=== PATIENT | female | born 1955 | race Caucasian/White ===

== ENCOUNTER → 2017-04-05 | Outpatient (CLI) | payer MEDICARE, OTHER ==
[~2017-04-05] MED LIST: ASPI1TAB57 PO; CALC500T37 PO; DICL75TA PO; FISH100020 PO; HYDR-3580 PO; LEVO.025 PO; LEVO125T3 PO; LISI10TA3 PO; MULT-65 PO; PROG200C PO; SACC1CAP3 PO; TIRO137C PO; VITA100021 SL; [UNRECOGNIZED DRUG - MIXTURE] TOP
[2017-04-05 09:14] LABS: AUTOMATED NEUTROPHIL # 4.2 TH/MM3 (1.8-7.7); BASOPHIL # 0.1 TH/MM3 (0-0.2); BASOPHIL % 1.2 % (0.0-2.0); EOSINOPHIL # 0.2 TH/MM3 (0-0.4); EOSINOPHIL % 2.8 % (0.0-4.0); HEMATOCRIT 40.1 % (35.0-46.0); HEMOGLOBIN 13.6 GM/DL (11.6-15.3); LYMPH % 25.7 % (9.0-44.0); LYMPHOCYTE # 1.7 TH/MM3 (1.0-4.8); MEAN CORPUSCULAR HEMOGLOBIN 30.2 PG (27.0-34.0); MEAN PLATELET VOLUME 7.9 FL (7.0-11.0); MONO % 8.1 % (0.0-8.0); MONOCYTE # 0.5 TH/MM3 (0-0.9); NEUT % 62.2 % (16.0-70.0); PLATELET COUNT 270 TH/MM3 (150-450); RED BLOOD COUNT 4.51 MIL/MM3 (4.00-5.30); RED CELL DISTRIBUTION WIDTH 14.1 % (11.6-17.2); WHITE BLOOD COUNT 6.7 TH/MM3 (4.0-11.0)
[2017-04-05 09:18] LABS: PROTHROMBIN TIME - PATIENT 10.2 SEC (9.8-11.6)
[2017-04-05 09:27] LABS: BICARBONATE 31.2 MEQ/L (21.0-32.0); CALCIUM 9.4 MG/DL (8.5-10.1); CREATININE 0.66 MG/DL (0.50-1.00)
[2017-04-05 10:49] LABS: BILIRUBIN, URINE NEG (NEG); BLOOD, URINE NEG (NEG); GLUCOSE,URINE NEG (NEG); KETONE, URINE NEG (NEG); MUCUS URINE FEW /lpf (OCC); NITRITE,URINE NEG (NEG); PH, URINE 6.5 (5.0-8.5); SQUAMOUS EPITHELIAL CELL URINE <1 /hpf (0-5); URINE COLOR YELLOW (YELLW/STRAW); URINE LEUKOCYTE ESTERASE NEG (NEG)
--- NOTE | 2017-04-05 19:40 | EKG ---
Date Performed: 04/05/2017 Time Performed: 08:56:26 PTAGE: 61 years EKG: Sinus rhythm NORMAL ECG Since the prior tracing, there has been no significant change PREVIOUS TRACING : 12/14/2014 11.00 DOCTOR: Jose Cruz Otero Interpretating Date/Time 04/05/2017 19:38:10
== END ==
LOC: CPRE 08:29
PROVIDERS: ATTEND Orthopaedic Surgery Orthopaedic Surgery of the Spine
DX: Z01.810 Encounter for preprocedural cardiovascular examination (principal); Z01.812 Encounter for preprocedural laboratory examination; M16.12 Unilateral primary osteoarthritis, left hip
CPT/HCPCS: 36415; 80048; 81001; 85025; 85610; 85730; 93005

== ENCOUNTER 2017-04-23 06:05 | Inpatient (IN) | payer MEDICARE, OTHER ==
[~2017-04-23] VITALS: Ht 167.6 cm; Wt 85.7 kg
[~2017-04-23 06:05] MED LIST changes: -HYDR-3580 PO; -LEVO.025 PO; -LEVO125T3 PO; -PROG200C PO
[2017-04-23] MEDS ORDERED: LACTATED RINGER'S 1000 ML IV PRN (06:30)
[2017-04-23] MEDS ORDERED: POVIDONE IODINE 5% (ANTISEPSIS KIT) 4 APPLICATIONS EACH NARE PRN (06:30)
[2017-04-23] MEDS ORDERED: VANCOMYCIN 1000 MG/NS 250 ML (for <70 kg) IV SCH ×2 (06:30)
[2017-04-23] MEDS ORDERED: CHLORHEXIDINE GLUCONATE 4% SOLN 120 ML BTL TOPICAL SCH (06:30)
[2017-04-23] MEDS ORDERED: CHLORHEXIDINE GLUCONATE 2 % 1 PACK (2 CLOTHS) TOPICAL PRN (06:30)
[2017-04-23] MEDS ORDERED: SODIUM CHLORID 0.9% 500 ML IV PRN (06:30)
[2017-04-23] MEDS ORDERED: METOPROLOL TARTRATE 25 MG TAB PO PRN (06:30)
[2017-04-23] MEDS ORDERED: ceFAZolin 2 GM PREMIX 50 ML IV SCH (06:30)
[2017-04-23] MEDS ORDERED: GENTAMICIN SULFATE 80 MG/2 ML VIAL ONE (06:58)
[2017-04-23] MEDS ORDERED: TRANEXAMIC ACID INJ 857 MG in SODIUM CHLORIDE 0.9% INJ 100 ML IV SCH (08:30)
[2017-04-23] MEDS ORDERED: EXPAREL PERI-ARTICULAR INJECTION (TOTAL VOL. 60 ML) P-ARTICULR SCH ×2 (08:30)
[2017-04-23] MEDS ORDERED: BUPIVACAINE/EPINEPHRINE 0.25% 50 ML VIAL ONE (09:29)
[2017-04-23] MEDS ORDERED: NALOXONE HCL 0.4 MG/ML AMP IV PUSH PRN (11:00)
[2017-04-23] MEDS ORDERED: Post-op Orders (for Pharmacy) XX ONE (11:00)
[2017-04-23] MEDS ORDERED: ACETAMINOPHEN/HYDROcodone 325 MG/10 MG TAB PO PRN (11:00)
[2017-04-23] MEDS ORDERED: MISCELLANEOUS PHARMACY INFORMATION XX ONE (11:00)
[2017-04-23] MEDS ORDERED: MORPHINE SULFATE 8 MG/ML INJ IM PRN (11:00)
[2017-04-23] MEDS ORDERED: MISCELLANEOUS NURSING INFORMATION XX PRN (11:00)
--- NOTE | 2017-04-23 11:05 | PD.OP ---
cc: Perez Marinelli MD Operative Report Date of Surgery: Apr 23, 2017 Preoperative Diagnosis: Osteoarthritis left hip, severe Postoperative Diagnosis: Same Procedure: Left total hip replacement arthroplasty, direct anterior exposure Anesthesia: Gen. Surgeon: Perez Marinelli Adjuster Electrical Contacts(s): HEMANTH Kamara Operation and Findings: EBL: 450 cc INDICATION: This patient presents with significant hip pain related to osteoarthritis of left hip. Despite extensive conservative care this patient continues to be painful and now presents for surgical treatment. NOTE: Marisela Kamara PA-C was present for the entire surgical procedure as my photographer assistant. In my medical opinion her skill and care was necessary for the proper management of this patient. COMPONENTS: COMPANY: [employer] CUP: [place], 52 mm, 100 series, gription surface LINER: Altrx 32 mm, neutral STEM: [place], size 13, high offset, hydroxyapatite-coated HEAD: Ceramic, 32 mm, +1, 12/14 taper PROCEDURE: This patient was brought to the operating room and anesthetized in the supine position and positioned on the fracture table with both legs held extended. The left hip and leg was scrubbed with alcohol followed by Hibiclens followed by ChloraPrep and draped sterilely. Antibiotics were given within routine time window and a timeout was done. A 4 inch incision was made starting 2 cm distal and 2 cm lateral to the anterior superior iliac spine. The fascia claire was opened longitudinally. The interval between the fascia claire and the rectus was opened down to the capsule of the hip joint. Retractors were positioned allowing good visualization of the capsule. This was opened longitudinally and flaps were created. Stay sutures were utilized. Exposure was excellent. The neck was cut at the proper location using fluoroscopy as a guide. The head was removed. Deep retractors were positioned allowing good visualization of the acetabulum. Acetabulum was deepened down to the floor starting with a proper size reamer and reaming up to 51 mm. A trial was utilized. Fluoroscopy was used to check position and confirmed satisfactory alignment. The rim was reamed with a 52 mm reamer and the final cup was positioned in approximately 20 of anteversion and 40-45 of abduction. Position was satisfactory. A single hole eliminator was positioned followed by the final liner. The lifting hook was utilized. The leg was dropped to the floor, maximally externally rotated and brought across the midline. Retractors were positioned. A box osteotome was utilized followed by progressive broaching to the proper stem size. Trial reduction showed excellent alignment and fit. With 60 of external rotation the leg was dropped to the floor without evidence of anterior subluxation. The wound was irrigated. The final stem was inserted and was found to be very stable. The final reduction using the final head. Stability was as previously noted. Intraoperative x-rays were taken. The wound was irrigated copiously. Hemostasis was controlled. Local anesthesia was utilized. The capsule was repaired with #2 Tycron sutures. The fascia claire was repaired with running 0 PDS on a loop. Subcutaneous tissue was approximated with 2-0 Vicryl and skin with running intradermal 3-0 Vicryl followed by Steri-Strips. A sterile dressing was applied. The patient was awakened and taken to the recovery room in satisfactory condition. FINDINGS: There was severe osteoarthritis of the left hip. The final solution was excellent and very stable. No complication was appreciated Perez Marinelli MD Apr 23, 2017 11:05
[2017-04-23] MEDS ORDERED: ASPI325T33 PO (11:11)
[2017-04-23] MEDS ORDERED: HYDR-3583 PO (11:11)
[2017-04-23] MEDS ORDERED: *MEPERIDINE 25 MG INJ VIAL PERIprocedural Use ONLY ONE (11:39)
[2017-04-23] MEDS ORDERED: DEXAMETHASONE SOD PHOS 4 MG/ML VIAL IV ONE (12:00)
[2017-04-23] MEDS ORDERED: ePHEDrine/NS 25 MG/5 ML SYRINGE IV ONE (12:00)
[2017-04-23] MEDS ORDERED: PHENYLEPH/NS 1000 MCG/10 ML SYR IV ONE (12:00)
[2017-04-23] MEDS ORDERED: PROPOFOL 200 MG/20 ML AMP IV ONE (12:00)
[2017-04-23] MEDS ORDERED: LIDOCAINE HCL 1% PF 5 ML SYRINGE OTHER ONE (12:00)
[2017-04-23] MEDS ORDERED: GLYCOPYRROLATE 1 MG/5 ML SYRINGE IV PUSH ONE (12:00)
[2017-04-23] MEDS ORDERED: NEOSTIGMINE 5 MG/5 ML SYRINGE IV PUSH ONE (12:00)
[2017-04-23] MEDS ORDERED: LACTATED RINGER'S 1000 ML INJ 1,000 ML IV ONE (12:00)
[2017-04-23] MEDS ORDERED: ROCURONIUM INJ 50 MG/5 ML SYRINGE IV PUSH ONE (12:00)
[2017-04-23] MEDS ORDERED: KETOROLAC TROMETHAMINE 30 MG/ML (IVP) VIAL IV PUSH ONE (12:00)
[2017-04-23] MEDS ORDERED: ONDANSETRON HCL 4 MG/2 ML VIAL IV ONE (12:00)
[2017-04-23] MEDS ORDERED: *morphine SULFATE 10 MG/ML PERIprocedure ONLY ONE (12:12)
[2017-04-23] MEDS ORDERED: ASPIRIN 81 MG CHEW TAB CHEW ONE (12:30)
[2017-04-23] MEDS: LACTATED RINGER'S 1000 ML INJ 1,000 ML IV SCH ×2 (12:30→21:47)
[2017-04-23] MEDS ORDERED: DO NOT ADM ANY ANTICOAGULANT DRUGS PRN (15:00)
--- NOTE | 2017-04-23 15:09 | RADRPT ---
EXAM DATE/TIME: 04/23/2017 09:55 [facility] COMPARISON: No previous studies available for comparison. INDICATIONS : Left anterior total hip arthroplasty. OR. MEDICAL HISTORY : None. SURGICAL HISTORY : Fusion, cervical. ENCOUNTER: Initial ACUITY: 1 day PAIN SCORE: Non-responsive. LOCATION: Left hip FINDINGS: 2 images are recorded digitally in the operating room using C-arm during placement of a total hip art hroplasty. Multiple skin yovani are present. CONCLUSION: Intraoperative images. Kobi Greco MD on April 23, 2017 at 15:07 Board Certified Radiologist. This report was verified electronically.
[2017-04-23 16:00] VITALS: BP 129/74; PULSE 95; RESP 17; TEMP 96.1; O2SAT 97
[2017-04-23] MEDS ORDERED: ONDANSETRON HCL 4 MG/2 ML VIAL IV PUSH PRN (20:45)
[2017-04-23] MEDS: ACETAMINOPHEN/HYDROcodone 325 MG/10 MG TAB PO PRN (20:45)
[2017-04-23] MEDS: ASPIRIN EC 81 MG TABEC PO SCH (20:46)
[2017-04-23] MEDS: MAGNESIUM HYDROXIDE SUSP 30 ML CUP PO SCH (20:46)
[2017-04-23 20:50] VITALS: BP 130/84; PULSE 78; RESP 17; TEMP 97.1; O2SAT 98
[2017-04-23] MEDS ORDERED: LISINOPRIL 10 MG TAB PO SCH (21:00)
[2017-04-23] MEDS ORDERED: SENNOSIDES 8.6 MG TAB PO SCH (21:00)
--- NOTE | 2017-04-23 22:25 | HHI.DCPOC ---
Discharge Care Plan Diagnosis: (1) Osteoarthritis of left hip Your Health Problems Are: Difficulty with ADL Incision/Drains Swelling Goals to Promote Your Health * To prevent worsening of your condition and complications * To maintain your health at the optimal level Directions to Meet Your Goals Take your medications as prescribed Follow your dietary instruction Follow activity as directed Keep your appointments as scheduled Take your immunizations and boosters as scheduled If your symptoms worsen call your PCP, if no PCP go to Urgent Care Center or Emergency Room Smoking is Dangerous to Your Health. Avoid second hand smoke Call the 24-hour hour crisis hotline for domestic abuse at Marisela Kamara Apr 23, 2017 22:25
--- NOTE | 2017-04-23 22:26 | HHI.FF ---
Face to Face Verification Diagnosis: (1) Osteoarthritis of left hip Physical Therapy Gait training, Safety evaluation, Transfer training, bed to chair Hip: Total hip, Protocol: Left, Progress to weight bearing Left LE Weight Bearing: WB as tolerated Additional Instructions PT 4 days/wk for 2 weeks. WBAT Left LE. Anterior AILYN precautions. Walker as needed. Nursing RN Days per Week: 2 x Week(s): 1 Dressing Changes: Do not change dressing Additional Instructions Vitals assessment. Dressing assessment - do not change unless saturated or erythema. I have seen patient Adali Morgan on 04/23/17. My clinical findings support the need for the requested home health care services because: Limited ability to care for self High risk of falls I certify that my clinical findings support that this patient is homebound because: Post-op weakness Unsteady gait/balance Marisela Kamara Apr 23, 2017 22:26
--- NOTE | 2017-04-23 22:28 | HHI.DS ---
Discharge Summary Admission Date Apr 23, 2017 at 06:05 Discharge Date: Apr 24, 2017 Admitting Diagnosis see below Diagnosis: (1) Osteoarthritis of left hip Diagnosis: Principal ICD Codes: M16.12 - Unilateral primary osteoarthritis, left hip Procedures Left total hip arthroplasty, direct anterior approach Brief History This is a 61 year old female patient with an 8-9 year history of left hip pain. She sought out treatment as early as 2009. She was diagnosed with moderate osteoarthritis of her left hip. She began receiving intra-articular hip injections in 2010 and has had at least 5 through 2016. She has taken diclofenac and ibuprofen in addition to over the counter medications. Her most recent xrays showed moderate to severe arthritis. She was not able to receive much relief from her last injection. Due to her steady decline in function and long-term treatment history surgical treatment was recommended in the form of left total hip arthroplasty, direct anterior approach. The patient agreed and now presents for the above. Hospital Course Surgical treatment was performed on the day of admission without complication. She recovered well in PACU and was transferred to the orthopaedic floor. Pain was controlled with IV and oral medications. DVT prophylaxis was initiated with ASA 81mg twice daily. She was given medications for postop nausea. She was compliant with physical therapy and all restrictions. After 1 day she was found to be stable and discharged home with home health care. She was educated to continue home therapy, to ice the operative site daily, and to pursue a high fiber diet. She was given prescriptions for [place] 10mg and ASA 81mg. Pt Condition on Discharge: Stable Discharge Disposition: Disch w/ Home Health Serv Discharge Instructions Diet Instructions: As Tolerated, No Restrictions, High Fiber Diet Additional Diet Instructions: High fiber diet for 3-5 days Activities You Can Perform: Weight Bearing as Kan Activities to Avoid: Strenuous Activity Additional Activity Instruc.: Anterior AILYN precautions New Medications: Commode 3-in-1 (Commode 3-in-1) 1 Mis Mis EA .XX DIRECTED, #1 0 Refills Walker with Front Wheels (Walker with Front Wheels) 1 Mis Mis EA .XX DIRECTED, #[address] (Aspirin EC) 325 Mg Tabdr 81 MG PO BID for Prevent Blood Clot, #60 TAB Hydrocodone/Acetaminophen (Hydrocodone-Acetamin 10-325 mg) 10 Mg-325 Mg Tablet 1 TAB PO Q4H PRN for Pain, #50 TAB Continued Medications: Calcium Ascorbate (Calcium Ascorbate) 500 Mg Tab 500 MG PO DAILY for Calcium Supplement, TAB 0 Refills Cyanocobalamin (Vitamin B-12) 1,000 Mcg Subl 1000 MCG SL DAILY for Nutritional Supplement, TAB.SL [address] (Diclofenac Sodium DR) 75 Mg Tabdr 75 MG PO DAILY, #30 TAB 0 Refills Levothyroxine (Tirosint) 137 Mcg Cap 137 MCG PO DAILY for Thyroid, #30 CAP 0 Refills Lisinopril (Lisinopril) 10 Mg Tab 10 MG PO HS, #30 TAB 0 Refills Multiple Vitamin (Multi-Vitamin Daily) 1 Tab Tab 1 TAB PO DAILY for Nutritional Supplement, TAB 0 Refills [place]-3 Fatty Acids (Fish Oil 1000 mg) 300 Mg-1,000 Mg Cap 1 CAP PO DAILY Saccharomyces Boulardii (Probiotic) 250 Mg Cap 250 MG PO DAILY for Nutritional Supplement, CAP 0 Refills Discontinued Medications: Aspirin DR (Aspirin 81) 81 Mg Tabdr 81 MG PO DAILY, TAB 0 Refills Marisela Kamara Apr 23, 2017 22:28
[2017-04-23] MEDS ORDERED: COMMODE 3-IN-11 MIS (22:29)
[2017-04-23] MEDS ORDERED: WALKER WHEELS/F1 MIS (22:29)
[2017-04-24 00:30] VITALS: BP 140/67; PULSE 91; RESP 18; TEMP 97.7; O2SAT 97
[2017-04-24] MEDS: ACETAMINOPHEN/HYDROcodone 325 MG/10 MG TAB PO PRN ×3 (00:30→12:59)
[2017-04-24 04:30] VITALS: BP 137/65; PULSE 93; RESP 17; TEMP 96.8; O2SAT 95
[2017-04-24] MEDS ORDERED: LEVOTHYROXINE SODIUM 25 MCG TAB PO SCH (06:00)
[2017-04-24] MEDS ORDERED: LEVOTHYROXINE SODIUM 112 MCG TAB PO SCH (06:00)
[2017-04-24 06:49] LABS: HEMATOCRIT 32.2 % (35.0-46.0); HEMOGLOBIN 11.2 GM/DL (11.6-15.3)
[2017-04-24 07:58] VITALS: O2SAT 94
[2017-04-24 08:00] VITALS: BP 135/64; PULSE 87; RESP 18; TEMP 98.1; O2SAT 96
[2017-04-24] MEDS: ASPIRIN EC 81 MG TABEC PO SCH (08:19)
[2017-04-24] MEDS: MAGNESIUM HYDROXIDE SUSP 30 ML CUP PO SCH (08:20)
[2017-04-24] MEDS ORDERED: LEVOTHYROXINE 137 MCG PO SCH (09:00)
[2017-04-24] MEDS: LACTATED RINGER'S 1000 ML INJ 1,000 ML IV SCH (11:08)
--- NOTE | 2017-04-24 13:06 | PD.ORT.PN ---
Subjective Subjective Remarks She is doing well. She struggled with nausea last night but that has resolved. She feels as though this had to do with not eating food while taking her pain pill. She denies any new radiating leg pain. She is urinating well. Ready for d/c home today. No CP or SOB. Objective Vitals Vital Signs Date Time Temp Pulse Resp B/P (MAP) Pulse Ox O2 Delivery O2 Flow Rate FiO2 04/24/17 08:00 98.1 87 18 135/64 (87) 96 04/24/17 07:58 94 04/24/17 04:30 96.8 93 17 137/65 (89) 95 04/24/17 00:30 97.7 91 18 140/67 (91) 97 04/23/17 20:50 97.1 78 17 130/84 (99) 98 04/23/17 16:00 96.1 95 17 129/74 (92) 97 04/23/17 15:45 97.8 75 16 140/74 (96) 95 Room Air 04/23/17 15:00 72 16 142/71 (94) 95 Room Air 04/23/17 14:00 73 16 137/68 (91) 94 Room Air I/O 04/23/17 04/23/17 04/23/17 04/24/17 04/24/17 04/24/17 07:00 15:00 23:00 07:00 15:00 23:00 Intake Total 1300 ml 100 ml 820 ml Output Total 450 ml 950 ml Balance 850 ml -850 ml 820 ml Intake Oral 720 ml IV Total 1300 ml 100 ml 100 ml Output Urine Total 950 ml Estimated Blood Loss 450 ml # Voids 3 # Bowel Movements 0 Result Diagram: 04/24/17 0549 Procedures Left total hip arthroplasty, direct anterior approach Objective Remarks Sitting up in chair NAD With her LLE Anterior hip dressing c/d/i, mild swelling, no erythema, +motor at, +sens distal, +nvi Neg homans Assessment & Plan Ortho Post Op Day #: 1 Problem List: (1) Osteoarthritis of left hip ICD Codes: M16.12 - Unilateral primary osteoarthritis, left hip Qualifiers: Qualified Codes: M16.12 - Unilateral primary osteoarthritis, left hip Assessment and Plan pod#1 s/p L AILYN, anterior Doing well. Ortho stable. Ok to d/c home w c today. PO pain control as needed. Ok to take 1 diclofenac daily after 3 days postop. Hold dressing changes unless saturated. PT - WBAT LLE. Anterior ailyn protocol. ASA 81mg bid for dvt prophylaxis. F/U in 2 weeks as scheduled. F2F written. Marisela Kamara Apr 24, 2017 13:06
== END 2017-04-24 14:21 | disposition home health service (06) | DRG 470 ==
LOC: HSDI 06:05 → N06A 16:05
PROVIDERS: ADMIT Orthopaedic Surgery Orthopaedic Surgery of the Spine; ATTEND Orthopaedic Surgery Orthopaedic Surgery of the Spine
PROC: 0SRB04A Replacement of Left Hip Joint with Ceramic on Polyethylene Synthetic Substitute, Uncemented, Open Approach (ICD-10-PCS; principal; 2017-04-23 08:49)
DX: M16.12 Unilateral primary osteoarthritis, left hip (principal); I10 Essential (primary) hypertension; E03.9 Hypothyroidism, unspecified; M50.30 Other cervical disc degeneration, unspecified cervical region; M43.22 Fusion of spine, cervical region; R11.0 Nausea; Z87.891 Personal history of nicotine dependence; Z88.5 Allergy status to narcotic agent
CPT/HCPCS: 73502; 76000; 85014; 85018; 86850; 86900; 86901; 86920; 94150; C1776; C9290; J0690; J1100; J1580; J1885; J2175; J2270; J2370; J2405; J2710; J3010; J3370; J7050; J7120